=== PATIENT | female | born 1985 | race Caucasian/White ===

== ENCOUNTER 2018-07-31 13:10 | Emergency (ER) | payer OTHER ==
[~2018-07-31] VITALS: Ht 172.7 cm; Wt 77.1 kg
[2018-07-31 14:09] LABS: BASOPHILS # (AUTO) 0.01 x10^3/uL (0-0.1); BASOPHILS % (AUTO) 0 % (0-1); EOSINOPHILS # (AUTO) 0.06 x10^3/uL (0-0.4); EOSINOPHILS % (AUTO) 1 % (1-7); LYMPHOCYTES % (AUTO) 32 % (22-44); MD NO; MEAN CORPUSCULAR HEMOGLOBIN 32.7 pg (27.0-34.8); MEAN CORPUSCULAR VOLUME 93.4 fL (80-100); MEAN PLATELET VOLUME 7.6 fL (7.4-10.4); MONOCYTES % (AUTO) 5 % (2-9); NEUTROPHILS # (AUTO) 3.61 x10^3/uL (1.8-6.8); NEUTROPHILS % (AUTO) 61 % (42-75); PLATELET COUNT 255 x10^3/uL (130-400); RED BLOOD COUNT 3.51 x10^6/uL (3.82-5.3)
[2018-07-31 14:16] LABS: ANION GAP 7 mmol/L (5-15); CALCIUM 8.7 mg/dL (8.5-10.1); CHLORIDE 109 mmol/L (98-107); CREATININE 0.94 mg/dL (0.55-1.02)
[2018-07-31 16:18] VITALS: BP 125/69
== END 2018-07-31 16:20 | disposition home or self-care (01) ==
LOC: ED 14:04
DX: N93.8 Other specified abnormal uterine and vaginal bleeding (principal)
CPT/HCPCS: 36415; 76830; 80048; 82040; 84703; 85025; 99285

== ENCOUNTER 2020-07-17 10:39 | Outpatient (CLI) | payer OTHER ==
[2020-07-17] MEDS ORDERED: NAPR500T8 PO (11:15)
[2020-07-17] MEDS ORDERED: NAPR220C2 PO (11:15)
[2020-07-17] MEDS ORDERED: SKIN PO (11:15)
[2020-07-17] MEDS ORDERED: [UNRECOGNIZED DRUG - OTHER] PO (11:15)
[2020-07-17] MEDS ORDERED: MONT10TA11 PO (11:15)
[2020-07-17] MEDS ORDERED: FLUT9.9S NAS (11:15)
[2020-07-17] MEDS ORDERED: MULTIVITAMIN PO (11:15)
[2020-07-17] MEDS ORDERED: PROBIOTIC PO (11:15)
[2020-07-17] MEDS ORDERED: FIBER PO (11:15)
[2020-07-17] MEDS ORDERED: [UNRECOGNIZED DRUG - OTHER] PO (11:15)
[2020-07-17 12:20] LABS: BASOPHILS # (AUTO) 0.03 x10^3/uL (0-0.1); BASOPHILS % (AUTO) 0 % (0-1); EOSINOPHILS # (AUTO) 0.11 x10^3/uL (0-0.4); EOSINOPHILS % (AUTO) 2 % (1-7); LYMPHOCYTES # (AUTO) 1.96 x10^3/uL (1-3.4); LYMPHOCYTES % (AUTO) 28 % (22-44); MD NO; MEAN CORPUSCULAR HEMOGLOBIN 32.2 pg (27.0-34.8); MEAN CORPUSCULAR VOLUME 94.7 fL (80-100); MEAN PLATELET VOLUME 7.9 fL (7.4-10.4); MONOCYTES # (AUTO) 0.47 x10^3/uL (0.2-0.8); MONOCYTES % (AUTO) 7 % (2-9); NEUTROPHILS # (AUTO) 4.48 x10^3/uL (1.8-6.8); NEUTROPHILS % (AUTO) 64 % (42-75); PLATELET COUNT 276 x10^3/uL (130-400); RED BLOOD COUNT 4.41 x10^6/uL (3.82-5.3); RED CELL DISTRIBUTION WIDTH 13.4 % (9.6-15.2)
[2020-07-17 16:55] LABS: CHLORIDE 106 mmol/L (98-107)
[2020-07-17 17:06] LABS: ALANINE AMINOTRANSFERASE 21 U/L (12-78); ALBUMIN 4.4 g/dL (3.4-5.0); ALKALINE PHOSPHATASE 60 U/L (45-117); ANION GAP 8 mmol/L (5-15); BILIRUBIN,TOTAL 0.5 mg/dL (0.2-1.0); CALCIUM 9.7 mg/dL (8.5-10.1); CREATININE 0.88 mg/dL (0.55-1.02); TOTAL PROTEIN 8.3 g/dL (6.4-8.2)
[2020-07-21 07:37] LABS: MICROSCOPIC AUTO
== END 2020-07-17 23:59 | disposition home or self-care (01) ==
LOC: STAR 10:39
PROVIDERS: ATTEND Obstetrics & Gynecology
DX: Z01.818 Encounter for other preprocedural examination (principal); Z20.828 Contact with and (suspected) exposure to other viral communicable diseases; O26.893 Other specified pregnancy related conditions, third trimester
CPT/HCPCS: 36415; 80053; 81001; 84702; 85025; 87086; 87635

== ENCOUNTER 2020-07-21 05:41 | Day surgery (SDC) | payer OTHER ==
[~2020-07-21] VITALS: Ht 170.2 cm; Wt 81.0 kg
[~2020-07-21 05:41] MED LIST: FIBER PO; FLUT9.9S NAS; MONT10TA11 PO; MULTIVITAMIN PO; NAPR220C2 PO; NAPR500T8 PO; PROBIOTIC PO; SKIN PO; [UNRECOGNIZED DRUG - OTHER] PO; [UNRECOGNIZED DRUG - OTHER] PO
[2020-07-21] MEDS ORDERED: CHLORHEXIDINE 15 ML UDC MM STA (06:08)
[2020-07-21] MEDS ORDERED: LACTATED RINGERS 1,000 ML IV SCH (06:08)
[2020-07-21 06:29] VITALS: BP 134/86
[2020-07-21] MEDS ORDERED: BUPIVACAINE/PF-EPI 0.25% 1:200K ONE (07:00)
[2020-07-21] MEDS ORDERED: SILVER NITRATE STICK TP ONE (07:00)
[2020-07-21] MEDS ORDERED: FENTANYL PF 250 MCG/5ML ONE (07:08)
[2020-07-21] MEDS ORDERED: MIDAZOLAM 1 MG/ML, 2ML ONE (07:08)
[2020-07-21] MEDS ORDERED: DEXAMETHASONE 4 MG/ML, 1ML ONE ×2 (07:35→07:54)
[2020-07-21] MEDS ORDERED: KETOROLAC 30 MG/1 ML ONE (07:54)
[2020-07-21] MEDS ORDERED: ONDANSETRON 2MG/ML, 2ML ONE (07:54)
[2020-07-21] MEDS ORDERED: PROPOFOL 10 MG/ML, 20ML ONE (07:54)
[2020-07-21] MEDS ORDERED: LABETALOL 5MG/ML, 20ML IV PRN (08:00)
[2020-07-21] MEDS ORDERED: ONDANSETRON 2MG/ML, 2ML IVPush PRN (08:00)
[2020-07-21] MEDS ORDERED: ACETAMINOPHEN 325 MG TABLET PO PRN (08:00)
[2020-07-21] MEDS ORDERED: PROMETHAZINE 25 MG/ML, 1ML IVPush PRN (08:00)
[2020-07-21] MEDS ORDERED: hydrALAzine 20 MG/ML, 1ML IV PRN (08:00)
[2020-07-21] MEDS ORDERED: OXYcodone 5 MG/5 ML ORAL.SOL UDC PO PRN (08:00)
[2020-07-21] MEDS ORDERED: HYDROmorphone 1 MG/ML, 1ML INJ IVPush PRN (08:00)
[2020-07-21] MEDS ORDERED: FENTANYL PF 100 MCG/2ML IV PRN (08:00)
[2020-07-21] MEDS ORDERED: ACETAMINOPHEN 650 MG/20.3 ML UDC ONE (08:31)
[2020-07-21] MEDS ORDERED: OXYcodone 5 MG/5 ML ORAL.SOL UDC ONE (08:32)
[2020-07-21] MEDS ORDERED: FENTANYL PF 100 MCG/2ML ONE (08:32)
[2020-07-21] MEDS ORDERED: MEPERIDINE/PF 25MG/ML,1ML ONE (08:36)
[2020-07-21] MEDS: MEPERIDINE/PF 25MG/0.5ML IVPush PRN ×2 (08:39→08:44)
== END 2020-07-21 11:10 | disposition home or self-care (01) ==
LOC: OUT 05:41
PROVIDERS: ATTEND Obstetrics & Gynecology
DX: N92.0 Excessive and frequent menstruation with regular cycle (principal); N84.0 Polyp of corpus uteri; Z79.899 Other long term (current) drug therapy; Z88.8 Allergy status to other drugs, medicaments and biological substances; Z83.3 Family history of diabetes mellitus; Z83.42 Family history of familial hypercholesterolemia; Z82.49 Family history of ischemic heart disease and other diseases of the circulatory system
CPT/HCPCS: 58563; 88305; J1100; J1170; J1885; J2175; J2250; J2405; J2704; J3010; J7120